=== PATIENT | male | born 1995 ===

== ENCOUNTER 2020-02-29 14:18 | Inpatient (IN) ==
[~2020-02-29 14:18] MED LIST: Buffered Lidocaine 1% SYRIN 1 ml INTRADERM ONE; Lactated Ringers 1000 ml BAG 1,000 ML IV SCH
[2020-02-29] MEDS ORDERED: ceFAZolin 2 GM PREMIX 2 GM/50 ML BAG ONE (14:31)
[2020-02-29] MEDS ORDERED: ceFAZolin 1 GM ADVAN 1 GM ADDV.VIAL IVPB ONE (14:31)
[2020-02-29] MEDS ORDERED: Ondansetron 4 mg VIAL 2 MG/ML 2 ml VIAL ONE (16:01)
[2020-02-29] MEDS ORDERED: Dexamethasone IV 4 MG/ML VIAL 1 ml VIAL ONE (16:01)
[2020-02-29] MEDS ORDERED: Lidocaine 2% PF 5 ML VIAL ONE (16:01)
[2020-02-29] MEDS ORDERED: fentaNYL 100 mcg/2 ml 50 MCG/ML VIAL ONE (16:01)
[2020-02-29] MEDS ORDERED: Propofol 10 MG/ML 20 ML BTL ONE (16:01)
[2020-02-29] MEDS ORDERED: Midazolam 2 mg/2 ml VIAL 1 mg/ml 2 ml VIAL (2 mg) ONE (16:08)
[2020-02-29] MEDS ORDERED: ROPIVACAINE 5 MG/ML 30 ML BTL (0.5%) ONE (16:08)
[2020-02-29] MEDS ORDERED: Bupivacaine 0.5% SDV PF 30ML VIAL ONE (16:38)
[2020-02-29] MEDS ORDERED: fentaNYL 250 mcg/5 ml 50 MCG/ML 5 ml VIAL (250 MCG) ONE (17:25)
[2020-02-29] MEDS ORDERED: HYDROmorphone 1 MG/1 ML SYRINGE ONE ×4 (17:51→19:47)
[2020-02-29] MEDS ORDERED: Midazolam 5 mg/5 ml VIAL 1 mg/ml 5 ml VIAL (5 mg) ONE (18:38)
[2020-02-29] MEDS ORDERED: Dexmedetomidine 200 mcg/2 ml 2 ml VIAL (200 mcg) ONE (18:40)
[2020-02-29] MEDS ORDERED: Ondansetron ODT 4 mg TAB 4 MG TAB PO PRN (18:55)
[2020-02-29] MEDS ORDERED: Lactulose 30 ml UDC PO PRN (18:55)
[2020-02-29] MEDS ORDERED: Ondansetron 4 mg VIAL 2 MG/ML 2 ml VIAL IV PRN (18:55)
[2020-02-29] MEDS ORDERED: diPHENhydraMINE 25 mg TAB PO PRN (18:55)
[2020-02-29] MEDS ORDERED: Magnesium Hydroxide LIQ 30 ML UDC PO PRN (18:55)
[2020-02-29] MEDS ORDERED: diPHENhydraMINE IV 50 MG/ML 1 ml VIAL (BENADRYL) IV PRN (18:55)
[2020-02-29] MEDS ORDERED: Naloxone 0.4 mg VIAL 0.4 mg/ml 1 ml VIAL IV PRN (19:45)
[2020-02-29] MEDS: HYDROmorphone 1 MG/1 ML SYRINGE IV PRN ×2 (19:50→20:00)
[2020-02-29] MEDS ORDERED: Lactated Ringers 1000 ml BAG 1,000 ML IV SCH (20:00)
[2020-02-29] MEDS ORDERED: Lorazepam PYXIS KEY PRN (20:07)
[2020-02-29] MEDS ORDERED: LORazepam 2 mg VIAL 1 ml IV PUSH ONE (20:07)
[2020-02-29] MEDS ORDERED: LORazepam 2 mg VIAL 1 ml ONE (20:09)
[2020-02-29] MEDS ORDERED: diPHENhydraMINE IV 50 MG/ML 1 ml VIAL (BENADRYL) ONE (20:19)
[2020-02-29] MEDS ORDERED: Nicotine PATCH 7 MG/24 HR PATCH TRANSDERM SCH (21:00)
[2020-02-29] MEDS: Morphine 2 MG/ML SYRINGE IV PRN (21:30)
[2020-02-29] MEDS: Magnesium Hydroxide LIQ 30 ML UDC PO SCH (21:57)
[2020-03-01] MEDS: Morphine 2 MG/ML SYRINGE IV PRN (01:35)
[2020-03-01] MEDS: ceFAZolin 1 GM ADVAN 1 GM in NS 0.9% 50 ML 50 ML IVPB SCH ×2 (01:40→09:44)
[2020-03-01 06:59] LABS: Hematocrit 40 % (42-52); Hemoglobin 13.6 g/dL (14.0-18.0); Platelet Count 158 10^3/uL (150-450)
[2020-03-01 07:15] LABS: BUN/Creatinine Ratio 11.3 (8-20); Calcium 8.4 mg/dL (8.6-10.3); EGFR African American 162.3 (>60); EGFR Non-African American 134.1 (>60); Potassium 4.1 mmol/L (3.5-5.0)
[2020-03-01 07:30] VITALS: BP 120/54
[2020-03-01] MEDS: Magnesium Hydroxide LIQ 30 ML UDC PO SCH (08:09)
[2020-03-01] MEDS ORDERED: Vitamin THERAPEUTIC TAB PO SCH (09:00)
== END 2020-03-01 10:25 | disposition home or self-care (01) | DRG 305 ==
LOC: SSU 14:18 → OR 14:18
PROVIDERS: ADMIT Orthopaedic Surgery; ATTEND Orthopaedic Surgery
PROC: O.ORAMP (2020-02-29 16:00)